=== PATIENT | female | born 1955 | race Caucasian/White ===

== ENCOUNTER 2018-10-08 09:16 | Emergency (ER) | payer MEDICARE, SELFPAY ==
[2018-10-08 09:24] VITALS: BP 157/72; PULSE 87; RESP 15; TEMP 36.7; O2SAT 100; BMI 20.1
--- NOTE | 2018-10-08 09:28 | DI.RAD.S_ITS ---
PROCEDURE: XR ELBOW LT MIN 3V INDICATIONS: fell last night, pain Left wrist w/ swelling. TECHNIQUE: 3 views of the elbow were acquired. COMPARISON: [facility], CR, XR WRIST LT MIN 3V, 10/08/2018, 9:28. FINDINGS: Bones: No fractures or dislocations. No suspicious bony lesions. The bone mineralization is decreased. There may be mild degenerative changes of the elbow joint. Soft tissues: No elbow joint effusion. No suspicious soft tissue calcifications. Vascular calcifications are present. IMPRESSION: No acute osseous abnormality of the left elbow. Dictated by: Jb Porter M.D. on 10/08/2018 at 8:55 Approved by: Jb Portre M.D. on 10/08/2018 at 8:56
--- NOTE | 2018-10-08 09:28 | DI.RAD.S_ITS ---
PROCEDURE: XR WRIST LT MIN 3V INDICATIONS: fell last night, pain Left wrist w/ swelling. TECHNIQUE: 3 views of the wrist were acquired. COMPARISON: [facility], CR, XR ELBOW LT MIN 3V, 10/08/2018, 9:30. FINDINGS: Bones: The bone mineralization is diffusely decreased in which does result in difficulty evaluating for subtle fractures. However, there is a transverse fracture identified involving being distal radial metaphysis with a vertical component extending onto the articular surface. An ulnar styloid process fracture also appears to be present. No additional fractures are evident. Moderate degenerative changes involving the joints of the wrist are present. Prominent vascular calcifications about the wrist are noted. No suspicious osseous lesions or dislocations are evident. Soft tissues: No suspicious soft tissue calcifications. IMPRESSION: 1. Nondisplaced transverse fracture involving the distal radial metaphysis with intra-articular involvement. 2. Ulnar styloid process fracture. 3. Moderate degenerative changes of the joints of the wrist. Dictated by: Jb Porter M.D. on 10/08/2018 at 8:53 Approved by: Jb Porter M.D. on 10/08/2018 at 8:55
[2018-10-08 09:32] VITALS: PULSE 80
--- NOTE | 2018-10-08 09:34 | ED.UPPEXIN ---
HPI - Extremity Injury (Upper) General Chief Complaint: Extremity Injury, Upper Stated Complaint: broken lft wrist Time Seen by Provider: 10/08/18 09:25 Source: patient Mode of arrival: ambulatory Limitations: no limitations History of Present Illness HPI narrative: 63-year-old female, former smoker presents with chief complaint of left wrist pain after a fall last evening. She is a type 1 diabetic and states her sugar 1 a bit low and she became lightheaded and fell onto an outstretched wrist. She now has significant pain and swelling. Her pain is worse with motion and improves with rest. She does have some pain that radiates into her elbow. She denies other injury such as head neck or back trouble. She has rest her hypoglycemia and is quite comfortable with that, stating she has been diabetic for 51 years MD complaint: injury to: left Onset (ago): hour(s) Other Extremity Injury: Left: wrist and elbow Other injuries: none Handedness: right Place: home Severity: moderate Relieving factors: immobilization Exacerbating factors: movement of extremity Context: fall Associated symptoms: denies other symptoms Related Data Allergies Allergy/AdvReac Type Severity Reaction Status Date / Time No Known Drug Allergies Allergy Verified 10/08/18 09:24 Review of Systems Review of Systems All systems reviewed & are unremarkable except as noted in HPI and below Constitutional Denies chills, Denies fever(s), Denies lethargy and Denies weakness Eyes Denies change in vision, Denies eye discharge, Denies irritation and Denies loss of vision ENT Ears, Nose, Mouth, and Throat: Denies change in voice, Denies neck pain and Denies sore throat Cardiovascular Denies chest pain, Denies irregular heart rhythm, Denies lightheadedness, Denies palpitations, Denies dyspnea, Denies dyspnea on exertion and Denies orthopnea Respiratory Denies cough, Denies dyspnea, Denies dyspnea on exertion and Denies wheezing Gastrointestinal Gastrointestinal: Denies abdominal pain, Denies change in bowel habits, Denies diarrhea, Denies nausea and Denies vomiting Genitourinary Denies hematuria, Denies flank pain, Denies urinary incontinence and Denies urinary urgency Musculoskeletal Reports joint swelling, Reports limited range of motion and Denies neck pain Integumentary/Breasts Denies pruritus, Denies erythema, Denies rash and Denies wounds Neurologic Denies confusion, Denies loss of vision and Denies weakness Psychiatric Denies anxiety, Denies confusion, Denies depression, Denies homicidal ideation and Denies suicidal ideation Endocrine Denies palpitations Hematologic/Lymphatic Denies easy bruising Allergic/Immunologic Denies wheezing [facility] Medical History Diabetes (Acute) Exam Narrative Exam Narrative: 63F in mild distress, AOx3, GCS15 Initial Vital Signs Initial Vital Signs: Vital Signs Temperature 98.0 F 10/08/18 09:24 Pulse Rate 87 10/08/18 09:24 Respiratory Rate 15 10/08/18 09:24 Blood Pressure 157/72 H 10/08/18 09:24 Pulse Oximetry 100 10/08/18 09:24 Const General: cooperative and well developed Nutritional Appearance: well nourished Orientation: alert, awake, oriented x3 and not confused HENMT Head: normocephalic and atraumatic Ears: external ears normal and TM's normal bilaterally Nose: external nose normal and No nasal discharge Face and sinus: sinuses nontender, face symmetric, no sinus tenderness and No dry mucous membranes Mouth: oral mucosae normal and moist mucous membranes Teeth and gingiva: dentition normal Throat: tonsils normal and uvula midline Eyes General: appearance normal, both eyes and all related structures Eyelids: eyelids normal Conjunctivae: conjunctivae normal Sclera: sclerae normal Pupils: PERRL EOM: EOM intact bilaterally Neck Neck: normal visual inspection, trachea midline, No lymphadenopathy, No midline deformity and No JVD Lymphatic: No lymphedema Chest Chest: normal inspection of the chest Resp Effort & Inspection: normal respiratory effort, able to speak in complete sentences, no respiratory distress and no use of accessory muscles Auscultation: clear to auscultation bilaterally, no rales, no rhonchi and no wheezes Cardio Rate: regular rate Rhythm: regular rhythm Heart Sounds: no click, no gallops, no murmurs and no rubs Pulses: normal peripheral pulses GI Inspection: non-distended Palpation: soft, no hepatosplenomegaly, No guarding, No pulsatile mass and No tender Auscultation: normal bowel sounds Back/Spine/Pelvis Back: No CVA tenderness Cervical Spine: cervical ROM normal and No pain with cervical ROM Thoracic/Lumbar Spine: thoracic and lumbar spine normal to inspection Skin General: no rashes or lesions noted, No jaundice and No petechiae Neuro General: alert, oriented x3, gait normal and no focal motor deficits Speech: speech normal Extrem Left upper extremity: edema and wrist (pain, swelling, decreased ROM. ) Details: tenderness, swelling, normal vascular exam and radial pulse present Procedures Orthopedic Splinting/Casting Injury #1: Side: left Upper Extremity Injury Location: wrist Upper Extremity Immobilizer: sling/shoulder immobilizer and sugar tong splint Course Orders Ordered: ED Orders 10/08/18 09:28 XR elbow LT min 3V Stat XR wrist LT min 3V Stat Discontinued Medications Acetaminophen/Codeine Phosphate (Tylenol #3) 1 tab PO NOW ONE Stop: 10/08/18 09:39 Last Admin: 10/08/18 09:41 Dose: 1 tab Vital Signs - 8 hr 10/08/18 09:24 10/08/18 09:32 Temperature 98.0 F Pulse Rate 87 Pulse Rate [Left Radial] 80 Respiratory Rate 15 Blood Pressure 157/72 H Pulse Oximetry 100 Discharge Plan Departure Patient Disposition: Home Clinical Impression: Distal radius fracture, left Instructions: DI for Distal Radius Fracture Activity Restrictions/Additional Instructions: *You have been diagnosed with [ left distal radius fracture ] *What to do: *Take medications as directed *Follow up with [facility], call for an appointment. Let them know you were seen in the Emergency Department and that we ask that you be seen in follow up *Return to ER if you should have any new, worsening or concerning symptoms, such as [ numbness, tingling, worsening pain or other bothersome symptoms] Referrals: Estefanía Silva MD [Physician] -
[2018-10-08] MEDS: CODEINE/ACETAMINOPHEN 30/300 TABLET 1 TAB PO (09:41)
[2018-10-08 10:25] VITALS: BP 186/65; PULSE 85; RESP 14; O2SAT 98
== END 2018-10-08 10:29 | disposition home or self-care (01) ==
PROVIDERS: Emergency Provider Emergency Medicine
DX: S52.502A Unspecified fracture of the lower end of left radius, initial encounter for closed fracture (principal); W18.30XA Fall on same level, unspecified, initial encounter
CPT/HCPCS: 29125; 73080; 73110; 99282; 99283

== ENCOUNTER 2018-10-11 12:09 | Emergency (ER) | payer MEDICARE, SELFPAY ==
[2018-10-11 12:13] VITALS: BP 134/74; PULSE 93; RESP 16; TEMP 36.3; O2SAT 100
[2018-10-11 15:51] VITALS: BP 149/67; PULSE 88; RESP 20; TEMP 37.1; O2SAT 98
--- NOTE | 2018-10-11 16:59 | ED_ITS ---
HPI - Abdominal Pain <DELTA Ha - Last Filed: 10/11/18 21:43> General Chief Complaint: Abdominal Pain Stated Complaint: abd pain Time Seen by Provider: 10/11/18 16:58 Source: patient Mode of arrival: ambulatory Limitations: no limitations History of Present Illness HPI narrative: 63-year-old female with history of type 1 diabetes and is a nonsmoker. Here for complaint of head and pain into her left lower quadrant over the past several weeks. She states that her last movement was earlier today it was loose however not diarrhea. She any constipation. She denies any fevers or chills. She denies any urinary symptoms. She denies any recent travel. She denies any recent antibiotic use. Denies any stressors or relievers of her discomfort. Related Data Home Medications Medication Instructions Recorded Confirmed amlodipine 2.5 mg PO QPM 10/11/18 10/11/18 atorvastatin 20 mg PO QPM 10/11/18 10/11/18 clopidogrel [Plavix] 75 mg PO QAM 10/11/18 10/11/18 dicyclomine 20 mg PO TID 10/11/18 10/11/18 gabapentin 300 mg PO TID 10/11/18 10/11/18 galantamine 4 mg PO BID 10/11/18 10/11/18 hydrocortisone 5 mg PO QPM 10/11/18 10/11/18 hydrocortisone 10 mg PO DAILY 10/11/18 10/11/18 pantoprazole 40 mg PO AC 10/11/18 10/11/18 ranitidine HCl [Zantac] 300 mg PO QPM 10/11/18 10/11/18 sirolimus 1.5 mg PO DAILY 10/11/18 10/11/18 tacrolimus 2 cap PO BID 10/11/18 10/11/18 Allergies Allergy/AdvReac Type Severity Reaction Status Date / Time No Known Drug Allergies Allergy Verified 10/08/18 09:24 Review of Systems <DELTA Ha - Last Filed: 10/11/18 21:43> Constitutional Denies chills, Denies fever(s), Denies lethargy and Denies weakness Eyes Denies change in vision, Denies eye discharge, Denies irritation and Denies loss of vision ENT Ears, Nose, Mouth, and Throat: Denies change in voice, Denies neck pain and Denies sore throat Cardiovascular Denies chest pain, Denies irregular heart rhythm, Denies lightheadedness, Denies palpitations, Denies dyspnea, Denies dyspnea on exertion and Denies orthopnea Respiratory Denies cough, Denies dyspnea, Denies dyspnea on exertion and Denies wheezing Gastrointestinal Gastrointestinal: Reports abdominal pain Genitourinary Denies hematuria, Denies flank pain, Denies urinary incontinence and Denies urinary urgency Musculoskeletal Denies neck pain Integumentary/Breasts Denies pruritus, Denies erythema, Denies rash and Denies wounds Neurologic Denies confusion, Denies loss of vision and Denies weakness Psychiatric Denies anxiety, Denies confusion, Denies depression, Denies homicidal ideation and Denies suicidal ideation Endocrine Denies palpitations Hematologic/Lymphatic Denies easy bruising Allergic/Immunologic Denies wheezing Exam <DELTA Ha - Last Filed: 10/11/18 21:43> Initial Vital Signs Initial Vital Signs: Vital Signs Temperature 97.4 F L 10/11/18 12:13 Pulse Rate 93 H 10/11/18 12:13 Respiratory Rate 16 10/11/18 12:13 Blood Pressure 134/74 10/11/18 12:13 Pulse Oximetry 100 10/11/18 12:13 Const General: cooperative and well developed Nutritional Appearance: well nourished Orientation: alert, awake, oriented x3 and not confused HENMS Mouth: oral mucosae normal and moist mucous membranes Eyes Conjunctivae: conjunctivae normal Sclera: sclerae normal Pupils: PERRL EOM: EOM intact bilaterally Resp Effort & Inspection: normal respiratory effort, able to speak in complete sentences, no respiratory distress and no use of accessory muscles Auscultation: clear to auscultation bilaterally, no rales, no rhonchi and no wheezes Cardio Rate: regular rate Rhythm: regular rhythm Heart Sounds: no click, no gallops, no murmurs and no rubs GI Inspection: non-distended Palpation: soft, no hepatosplenomegaly, No guarding, No pulsatile mass and tender (Tenderness left lower quadrant) Auscultation: normal bowel sounds General: No CVA tenderness Neuro General: alert, oriented x3, gait normal and no focal motor deficits Speech: speech normal <Paras Dumas DO - Last Filed: 10/11/18 22:45> Initial Vital Signs Initial Vital Signs: Vital Signs Temperature 97.4 F L 10/11/18 12:13 Pulse Rate 93 H 10/11/18 12:13 Respiratory Rate 16 10/11/18 12:13 Blood Pressure 134/74 10/11/18 12:13 Pulse Oximetry 100 10/11/18 12:13 Course <DELTA Ha - Last Filed: 10/11/18 21:43> Orders Ordered: ED Orders 10/11/18 17:30 CT abdomen pelvis w con Stat 10/11/18 18:16 Complete Blood Count AUTO DIFF Stat Comprehensive Metabolic Panel Stat Lipase Stat 10/11/18 20:40 Urine Culture Stat Urine Microscopic Stat Discontinued Medications Dextrose (D50w) 25 gm IV NOW ONE Stop: 10/11/18 19:44 Last Admin: 10/11/18 19:46 Dose: 25 gm Sodium Chloride (Normal Saline 0.9%) 500 mls @ 1,000 mls/hr IV BOLUS ONE Stop: 10/11/18 17:58 Last Infusion: 10/11/18 21:46 Dose: 0 mls/hr Admin: 10/11/18 18:44 Dose: 1,000 mls/hr Vital Signs - 8 hr 10/11/18 15:51 10/11/18 18:49 10/11/18 20:30 Temperature 98.7 F Pulse Rate 88 82 80 Respiratory Rate 20 18 18 Blood Pressure [Left Arm] 149/67 H Blood Pressure [Right Arm] 153/66 H 149/67 H Pulse Oximetry 98 99 97 <Paras Dumas DO - Last Filed: 10/11/18 22:45> Orders Ordered: ED Orders 10/11/18 17:30 CT abdomen pelvis w con Stat 10/11/18 18:16 Complete Blood Count AUTO DIFF Stat Comprehensive Metabolic Panel Stat Lipase Stat 10/11/18 20:40 Urine Culture Stat Urine Microscopic Stat Discontinued Medications Dextrose (D50w) 25 gm IV NOW ONE Stop: 10/11/18 19:44 Last Admin: 10/11/18 19:46 Dose: 25 gm Sodium Chloride (Normal Saline 0.9%) 500 mls @ 1,000 mls/hr IV BOLUS ONE Stop: 10/11/18 17:58 Last Infusion: 10/11/18 21:46 Dose: 0 mls/hr Admin: 11/15/18 18:44 Dose: 1,000 mls/hr Vital Signs - 8 hr 10/11/18 15:51 10/11/18 18:49 10/11/18 20:30 Temperature 98.7 F Pulse Rate 88 82 80 Respiratory Rate 20 18 18 Blood Pressure [Left Arm] 149/67 H Blood Pressure [Right Arm] 153/66 H 149/67 H Pulse Oximetry 98 99 97 MDM - Abdominal Pain <DELTA Ha - Last Filed: 10/11/18 21:43> Lab Data Result diagrams: 10/11/18 18:16 10/11/18 18:16 Lab Results 10/11/18 10/11/18 10/11/18 Range/Units 18:16 18:16 20:40 WBC 7.0 (4.5-11.0) X10^3/uL RBC 4.46 (4.0-5.2) X10^6/uL Hgb 12.8 (12.0-16.0) g/dL Hct 38.6 (36-46) % MCV 86.4 (80-100) fL MCH 28.7 (26-34) PG MCHC 33.2 (30-36) % RDW 16.6 H (11.6-14.8) % Plt Count 252 (150-400) X10^3/uL Neut % (Auto) 68.5 (50-75) % Lymph % (Auto) 20.0 L (25-40) % [place] % (Auto) 8.8 (3-14) % Eos % (Auto) 1.7 L (2-4) % Baso % (Auto) 1.0 (0-2) % Neut # (Auto) 4800 (3838-1387) /uL Sodium 142 (137-145) mmol/L Potassium 4.6 (3.4-5.1) mmol/L Chloride 106 (98-107) mmol/L Carbon Dioxide 26 (22-32) mmol/L BUN 26 H (7-17) mg/dL Creatinine 1.00 (0.52-1.04) mg/dL Estimated GFR 56.0 L (>60) mL/min BUN/Creatinine Ratio 26.0 H (6-22) Glucose 63 L (80-110) mg/dL Calcium 9.2 (8.4-10.2) mg/dL Total Bilirubin 0.4 (0.2-1.3) mg/dL AST 37 H (14-36) IU/L ALT 28 (9-52) IU/L Alkaline Phosphatase 46 (38-126) U/L Total Protein 6.5 (6.3-8.2) g/dL Albumin 3.9 (3.5-5.0) g/dL Globulin 2.6 (1.7-4.1) g/dL Albumin/Globulin Ratio 1.5 (1.0-2.8) Lipase 15 L (23-300) U/L Urine RBC 1-5/hpf (0-5/HPF) Urine WBC 1-5/hpf (0-5/HPF) Urine Bacteria None seen (None) Ur Culture Indicated? Specimen cultured Micro UA Comment Not Reportable Point of care testing: Point of Care Testing Glucose POC 128 Urine Dip Bedside Urine Glucose 250 mg/dl Bedside Urine Bilirubin - Negative Bedside Urine Ketone - Negative Urine Specific [place] 1.010 Bedside Urine Occult Blood - Negative Bedside Urine pH 7.5 Bedside Urine Protein - Negative Bedside Urine Urobilinogen - Negative Bedside Urine Nitrite - Negative Bedside Urine Leukocytes +/- [address] scan - abdomen: Radiologist's impression: [place] [address] CT Scan Report Signed Patient: Ofelia Rodríguez [facility] [place]#: [id number] : 5Acct:[id number] Age/Sex: 63 / FDate of Service: 10/11/18 Loc: ED Accession Number: [id number] Procedure: CT abdomen pelvis w con Ordering Provider: Audi Avitia PROCEDURE: CT ABDOMEN PELVIS W CON INDICATIONS: Pain left lower quadrant TECHNIQUE: After the administration of intravenous contrast, 5 mm thick sections acquired from the diaphragm to the symphysis. 5 mm coronal and sagittal reformats were acquired. For radiation dose reduction, the following was used: automated exposure control, adjustment of mA and/or kV according to patient size. COMPARISON: None. FINDINGS: Image quality: Excellent. ABDOMEN: Lung bases: Lung bases are clear. There is a large pericardial effusion. Solid organs: Liver is normal in size and enhancement. Gallbladder wall is thickened. Biliary system is non dilated. Pancreas enhances normally. Spleen is normal in size and enhancement. No adrenal nodules. Right kidney is absent. Severe left renal atrophy. Left iliac fossa renal transplant is present. Severely atrophic right iliac fossa renal transplant. Peritoneum and bowel: Small hiatal hernia. Bowel loops demonstrate normal wall thickness and caliber. No pneumoperitoneum. Small amount of free fluid within the pelvis. Normal appendix. Nodes and vessels: No retroperitoneal or mesenteric adenopathy by size criteria. Aorta and inferior vena cava are normal in size. Miscellaneous: No ventral hernias. PELVIS: Genitourinary: Bladder wall thickness is normal. Miscellaneous: No inguinal hernias or adenopathy. Bones: No suspicious bony lesions. Mild chronic T12 wedging. Left hip arthroplasty. No acute vertebral body compression fractures. IMPRESSION: 1. Gallbladder wall thickening, which could indicate cholecystitis in the appropriate clinical setting. This could be further assessed with ultrasound, if clinically indicated. 2. Large pericardial effusion. 3. Normal appendix. 4. Small amount of free pelvic fluid. 5. Small hiatal hernia. 6. Normal appearing left iliac fossa renal transplant. Severe atrophy of a right iliac fossa renal transplant. Dictated by: Justin Kimball M.D. on 10/11/2018 at 19:39 Approved by: Justin Kimball M.D. on 10/11/2018 at 19:42 MDM Narrative Medical decision making narrative: CBC and Chem panel were obtained were unremarkable. The lipase was unremarkable. CT of the abdomen was obtained and was negative for any acute findings. While waiting for lab results her blood sugar dropped to 36. She was given D50. Which helped her blood sugar. Urinalysis was negative for urinary tract infection. Sinus symptoms or abdominal pain at present as abdominal wall pain. She denies any recent for any recent antibiotics. Use [id number] Tylenol as needed for any discomfort. Follow up with primary care provider. Recommend stool studies if pain does not resolve. Return emergency room for any worsening symptoms. <Paras Dumas, DO - Last Filed: 10/11/18 22:45> Lab Data Lab Results 10/11/18 10/11/18 10/11/18 Range/Units 18:16 18:16 20:40 WBC 7.0 (4.5-11.0) X10^3/uL RBC 4.46 (4.0-5.2) X10^6/uL Hgb 12.8 (12.0-16.0) g/dL Hct 38.6 (36-46) % MCV 86.4 (80-100) fL MCH 28.7 (26-34) PG MCHC 33.2 (30-36) % RDW 16.6 H (11.6-14.8) % Plt Count 252 (150-400) X10^3/uL Neut % (Auto) 68.5 (50-75) % Lymph % (Auto) 20.0 L (25-40) % [place] % (Auto) 8.8 (3-14) % Eos % (Auto) 1.7 L (2-4) % Baso % (Auto) 1.0 (0-2) % Neut # (Auto) 4800 (9382-5891) /uL Sodium 142 (137-145) mmol/L Potassium 4.6 (3.4-5.1) mmol/L Chloride 106 (98-107) mmol/L Carbon Dioxide 26 (22-32) mmol/L BUN 26 H (7-17) mg/dL Creatinine 1.00 (0.52-1.04) mg/dL Estimated GFR 56.0 L (>60) mL/min BUN/Creatinine Ratio 26.0 H (6-22) Glucose 63 L (80-110) mg/dL Calcium 9.2 (8.4-10.2) mg/dL Total Bilirubin 0.4 (0.2-1.3) mg/dL AST 37 H (14-36) IU/L ALT 28 (9-52) IU/L Alkaline Phosphatase 46 (38-126) U/L Total Protein 6.5 (6.3-8.2) g/dL Albumin 3.9 (3.5-5.0) g/dL Globulin 2.6 (1.7-4.1) g/dL Albumin/Globulin Ratio 1.5 (1.0-2.8) Lipase 15 L (23-300) U/L Urine RBC 1-5/hpf (0-5/HPF) Urine WBC 1-5/hpf (0-5/HPF) Urine Bacteria None seen (None) Ur Culture Indicated? Specimen cultured Micro UA Comment Not Reportable Point of care testing: Point of Care Testing Glucose POC 128 Urine Dip Bedside Urine Glucose 250 mg/dl Bedside Urine Bilirubin - Negative Bedside Urine Ketone - Negative Urine Specific [place] 1.010 Bedside Urine Occult Blood - Negative Bedside Urine pH 7.5 Bedside Urine Protein - Negative Bedside Urine Urobilinogen - Negative Bedside Urine Nitrite - Negative Bedside Urine Leukocytes +/- 15 Esterase Discharge Plan Departure Patient Disposition: Home Clinical Impression: Abdominal pain Discharge Date/Time: 10/11/18 21:47 Interventions: ED Discharge Assessment Last Done: 10/11/18 21:47 Instructions: DI for Abdominal Pain-Adult Activity Restrictions/Additional Instructions: Laboratory results and imaging today were unremarkable. No apparent cause of your abdominal pain are found. Pain may be due to abdominal wall pain with a muscle strain. Use [id number] Tylenol as needed for any discomfort. Follow up with primary care provider next few days for re-evaluation. If continued pain recommend stool studies for further evaluation. If any worsening symptoms return to the emergency room. Prescriptions: No Action hydrocortisone 5 mg Tablet 5 mg PO QPM RF: 0 atorvastatin 20 mg Tablet 20 mg PO QPM RF: 0 ranitidine HCl [Zantac] 300 mg Tablet 300 mg PO QPM RF: 0 galantamine 4 mg Tablet 4 mg PO BID RF: 0 amlodipine 2.5 mg Tablet 2.5 mg PO QPM RF: 0 clopidogrel [Plavix] 75 mg Tablet 75 mg PO QAM RF: 0 dicyclomine 20 mg Tablet 20 mg PO TID RF: 0 pantoprazole 40 mg Tablet,Delayed Release (Dr/Ec) 40 mg PO AC RF: 0 gabapentin 300 mg Capsule 300 mg PO TID RF: 0 hydrocortisone 10 mg Tablet 10 mg PO DAILY RF: 0 sirolimus 0.5 mg Tablet 1.5 mg PO DAILY RF: 0 tacrolimus 2 cap PO BID RF: 0 Referrals: [facility] [Provider Group] <Paras Dumas DO - Last Filed: 10/11/18 22:45> Cosign ED Attending Imani Attestation: I was available for consultation during this patient's emergency department encounter
--- NOTE | 2018-10-11 17:30 | DI.CT.S_ITS ---
PROCEDURE: CT ABDOMEN PELVIS W CON INDICATIONS: Pain left lower quadrant TECHNIQUE: After the administration of intravenous contrast, 5 mm thick sections acquired from the diaphragm to the symphysis. 5 mm coronal and sagittal reformats were acquired. For radiation dose reduction, the following was used: automated exposure control, adjustment of mA and/or kV according to patient size. COMPARISON: None. FINDINGS: Image quality: Excellent. ABDOMEN: Lung bases: Lung bases are clear. There is a large pericardial effusion. Solid organs: Liver is normal in size and enhancement. Gallbladder wall is thickened. Biliary system is non dilated. Pancreas enhances normally. Spleen is normal in size and enhancement. No adrenal nodules. Right kidney is absent. Severe left renal atrophy. Left iliac fossa renal transplant is present. Severely atrophic right iliac fossa renal transplant. Peritoneum and bowel: Small hiatal hernia. Bowel loops demonstrate normal wall thickness and caliber. No pneumoperitoneum. Small amount of free fluid within the pelvis. Normal appendix. Nodes and vessels: No retroperitoneal or mesenteric adenopathy by size criteria. Aorta and inferior vena cava are normal in size. Miscellaneous: No ventral hernias. PELVIS: Genitourinary: Bladder wall thickness is normal. Miscellaneous: No inguinal hernias or adenopathy. Bones: No suspicious bony lesions. Mild chronic T12 wedging. Left hip arthroplasty. No acute vertebral body compression fractures. IMPRESSION: 1. Gallbladder wall thickening, which could indicate cholecystitis in the appropriate clinical setting. This could be further assessed with ultrasound, if clinically indicated. 2. Large pericardial effusion. 3. Normal appendix. 4. Small amount of free pelvic fluid. 5. Small hiatal hernia. 6. Normal appearing left iliac fossa renal transplant. Severe atrophy of a right iliac fossa renal transplant. Dictated by: Justin Kimball M.D. on 10/11/2018 at 19:39 Approved by: Justin Kimball M.D. on 10/11/2018 at 19:42
[2018-10-11 18:31] LABS: Add Manual Diff / Slide Review NO; Eosinophils Percent Auto 1.7 % (2-4); Hematocrit 38.6 % (36-46); Hemoglobin 12.8 g/dL (12.0-16.0); Mean Corpuscular HGB Conc 33.2 % (30-36); Mean Corpuscular Hemoglobin 28.7 PG (26-34); Mean Corpuscular Volume 86.4 fL (80-100); Monocytes Percent Auto 8.8 % (3-14); Neutrophils Absolute Auto 4800 /uL (3000-5900); Neutrophils Percent Auto 68.5 % (50-75); Platelet Count 252 X10^3/uL (150-400); Red Blood Cell Count 4.46 X10^6/uL (4.0-5.2); Red Cell Distribution Width 16.6 % (11.6-14.8)
[2018-10-11 18:44] LABS: Alanine Aminotransferase 28 IU/L (9-52); Albumin 3.9 g/dL (3.5-5.0); Albumin Globulin Ratio 1.5 (1.0-2.8); Alkaline Phosphatase 46 U/L (38-126); Aspartate Aminotransferase 37 IU/L (14-36); Bilirubin Total 0.4 mg/dL (0.2-1.3); Blood Urea Nitrogen 26 mg/dL (7-17); Calcium 9.2 mg/dL (8.4-10.2); Carbon Dioxide 26 mmol/L (22-32); Chloride 106 mmol/L (98-107); Globulin 2.6 g/dL (1.7-4.1); Glucose 63 mg/dL (80-110); HEMOLYSIS 33 (0-50); Lipase 15 U/L (23-300); Potassium 4.6 mmol/L (3.4-5.1); Sodium 142 mmol/L (137-145); Total Protein 6.5 g/dL (6.3-8.2)
[2018-10-11] MEDS: SODIUM CHLORIDE 0.9% 500 ML 1000 ML IV (18:44)
[2018-10-11 18:49] VITALS: BP 153/66; PULSE 82; RESP 18; O2SAT 99
[2018-10-11] MEDS: DEXTROSE 50 % IN WATER 25 GM/50 ML SYRINGE IV (19:46)
[2018-10-11 20:30] VITALS: BP 149/67; PULSE 80; RESP 18; O2SAT 97
[2018-10-11 21:02] LABS: Bacteria Urine None Seen; Culture Indicated Urine Specimen Cultured; RBC Urine 1-5/HPF (0-5/HPF); WBC Urine 1-5/HPF (0-5/HPF)
--- NOTE | 2018-10-13 16:39 | PC.NURSE ---
pt states we were very attentive. pt does have f/u scheduled with [facility] and she is feeling better today.
== END 2018-10-11 21:47 | disposition home or self-care (01) ==
PROVIDERS: Emergency Provider Nurse Practitioner Family
DX: R10.9 Unspecified abdominal pain (principal)
CPT/HCPCS: 36591; 74177; 80053; 81003; 81015; 82962; 83690; 85025; 87086; 96361; 96374; 99283; 99285; Q9967